=== PATIENT | female | born 2000 | race Caucasian/White ===

== ENCOUNTER 2024-03-14 19:39 | Emergency (ER) | payer OTHER ==
[~2024-03-14] VITALS: Ht 160 cm; Wt 64.4 kg
[2024-03-14 19:44] VITALS: BP 115/79; PULSE 83; RESP 20; TEMP 97.2; O2SAT 98
--- NOTE | 2024-03-14 19:48 | NUR ---
ambualted to lobby after triage
--- NOTE | 2024-03-14 20:06 | NUR ---
PA examing patient
[2024-03-14] MEDS ORDERED: ATA25 PO (20:10)
[2024-03-14] MEDS: HYDROXYZINE HYDROCHLORIDE 25 MG TAB PO STA (20:14)
[2024-03-14 20:18] VITALS: BP 115/79; PULSE 83; RESP 20; TEMP 97.2; O2SAT 98
== END 2024-03-14 20:18 | disposition home or self-care (01) ==
LOC: MED 19:39
DX: R21 Rash and other nonspecific skin eruption (principal); L50.9 Urticaria, unspecified; Z76.0 Encounter for issue of repeat prescription; Z79.899 Other long term (current) drug therapy
CPT/HCPCS: 99281